=== PATIENT | male | born 1950 | race Caucasian/White ===

== ENCOUNTER 2023-01-13 14:30 | Emergency (ER) | payer OTHER ==
[2023-01-13 14:40] VITALS: TEMP 98.6; BMI 44.6
[2023-01-13] MEDS ORDERED: ACETAMINOPHEN 500 MG TABLET (FP) PO ONE (16:00)
[2023-01-13] MEDS ORDERED: ACETAMINOPHEN 325 MG TABLET (FP) ONE (16:39)
[2023-01-13 17:00] LABS: BASO % 0.7 % (0-2.0); EOS % 4.3 % (0-4.5); HEMATOCRIT 41.3 % (35.4-49); HEMOGLOBIN 13.5 GM/dL (11.7-16.9); LYMPH % 29.8 % (8-40); MCH 25.6 pg (25.7-33.7); MCHC 32.7 g/dl (32.0-35.9); MEAN CELL VOLUME 78.5 fl (80-96); MEAN PLT VOLUME 8.1 fl (7.5-11.1); MONO % 6.8 % (3.8-10.2); NEUT % 58.4 % (42.8-82.8); PLATELET COUNT 318 10^3/uL (134-434); RBC 5.26 M/mm3 (4.00-5.60); RDW 16.9 % (11.9-15.9); WHITE BLOOD COUNT 9.1 K/mm3 (4.0-10.0)
[2023-01-13 17:07] LABS: PROTHROMBIN TIME (PATIENT) 11.6 SEC (9.7-13.0)
[2023-01-13 17:10] LABS: ACTIVATED PTT 36.2 SECONDS (25.2-36.5)
[2023-01-13 17:28] LABS: POTASSIUM 4.5 mmol/L (3.5-5.1)
[2023-01-13 17:30] LABS: BLOOD UREA NITROGEN 14.5 mg/dL (7-18); CALCIUM 9.5 mg/dL (8.5-10.1); MAGNESIUM 1.8 mg/dL (1.8-2.4)
[2023-01-13 17:31] LABS: ALBUMIN 3.8 g/dl (3.4-5.0)
[2023-01-13 17:35] LABS: BILIRUBIN,TOTAL 0.3 mg/dL (0.2-1); TOT PROT 7.1 g/dl (6.4-8.2)
[2023-01-13 17:42] LABS: URINE APPEARANCE CLEAR; URINE BILIRUBIN NEGATIVE (NEGATIVE); URINE COLOR YELLOW; URINE GLUCOSE (UA) NEGATIVE (NEGATIVE); URINE KETONE NEGATIVE (NEGATIVE); URINE LEUK ESTERASE NEGATIVE (NEGATIVE); URINE NITRITE NEGATIVE (NEGATIVE); URINE PROTEIN NEGATIVE (NEGATIVE); URINE UROBILINOGEN 0.2 mg/dL (0.2-1.0)
[2023-01-13 21:41] VITALS: BP 128/69; PULSE 64; RESP 16
== END 2023-01-13 21:41 | disposition home or self-care (01) ==
LOC: JER 14:30
DX: R10.31 Right lower quadrant pain (principal); N50.82 Scrotal pain
CPT/HCPCS: 36415; 74177-TC; 76870-TC; 80053; 81003; 83605; 83690; 83735; 85025; 85610; 85730; 86850; 86900; 86901; 87086; 99285-25; Q9967

== ENCOUNTER 2023-07-18 22:28 | Emergency (ER) | payer OTHER ==
[2023-07-18 22:47] VITALS: BP 127/67; PULSE 80; RESP 18; TEMP 97.5; BMI 44.2
[2023-07-19] MEDS ORDERED: ACETAMINOPHEN 500 MG TABLET (FP) ONE
[2023-07-19] MEDS ORDERED: LIDOCAINE 4% PATCH TP ONE (00:01)
[2023-07-19] MEDS: ACETAMINOPHEN 500 MG TABLET (FP) PO ONE (00:03)
[2023-07-19] MEDS: LIDOCAINE 5% TOPICAL PATCH TP ONE (00:04)
[2023-07-19] MEDS: LIDOCAINE PATCH REMOVAL MC SCH (00:04)
[2023-07-19] MEDS ORDERED: LIDOCAINE HCL 2% (20ML MULTI-DOSE VIAL) ONE (02:55)
[2023-07-19] MEDS: LIDOCAINE HCL 2% (50ML VIAL) SQ ONE (03:02)
[2023-07-19] MEDS: LIDOCAINE HCL 2% (50ML VIAL) INF ONE ×2 (03:03→03:05)
== END 2023-07-19 03:32 | disposition home or self-care (01) ==
LOC: JER 22:28
PROC: 0S9C3ZZ Drainage of Right Knee Joint, Percutaneous Approach (ICD-10-PCS; principal; 2023-07-18)
DX: M79.604 Pain in right leg (principal); M25.532 Pain in left wrist; M17.11 Unilateral primary osteoarthritis, right knee
CPT/HCPCS: 20610; 73090-TC-LT-FY; 73130-TC-LT-FY; 89060; 93971-TC; 99285-25